=== PATIENT | male | born 2000 | race Caucasian/White ===

== ENCOUNTER 2025-07-19 07:11 | Emergency (ER) | payer OTHER ==
[~2025-07-19] VITALS: Ht 177.8 cm; Wt 72.3 kg
[2025-07-19 07:33] VITALS: TEMP 98.1
[2025-07-19 07:33] LABS: PLATELET COUNT (AUTO) 316 K/uL (150-450); RED BLOOD CELL COUNT(AUTO) 5.34 MIL/uL (4.50-5.90); RED CELL DISTRIBUTION WIDTH 14.7 % (11.5-14.5); WHITE BLOOD COUNT (AUTO) 7.0 K/uL (4.5-11.0)
[2025-07-19 07:40] LABS: CALCIUM, TOTAL 8.8 mg/dL (8.8-10.5); CREATININE 1.12 mg/dL (0.60-1.30); GLOMERULAR FILTR. RATE CALC > 60 mL/min (>60); GLUCOSE,RANDOM 99 mg/dL (70-110); SODIUM SERUM 138 mmol/L (136-145); UREA NITROGEN, BLOOD 10 mg/dL (7-18)
[2025-07-19] MEDS ORDERED: HYDR-4808 PO (08:37)
[2025-07-19 09:06] VITALS: BP 114/95; PULSE 84; RESP 18; O2SAT 99
== END 2025-07-19 09:22 | disposition home or self-care (01) ==
LOC: EMS 07:11
DX: F41.9 Anxiety disorder, unspecified (principal); R00.2 Palpitations; R13.10 Dysphagia, unspecified; Z79.899 Other long term (current) drug therapy
CPT/HCPCS: 71045; 80048; 85025; 93005; 99285; 36415-L1; 36415-TC